=== PATIENT | female | born 1985 | race Caucasian/White ===

== ENCOUNTER 2017-02-19 19:19 | Observation (INO) ==
[2017-02-19] MEDS ORDERED: ACETAMINOPHEN 325 MG TABLET PO PRN (20:54)
[2017-02-19] MEDS ORDERED: NALOXONE 0.4 MG/ML VIAL IV PRN (20:54)
[2017-02-19] MEDS ORDERED: PROMETHAZINE 25 MG/1 ML VIAL IM PRN (20:54)
[2017-02-19] MEDS ORDERED: ONDANSETRON 4 MG/2 ML VIAL IV PRN (20:54)
[2017-02-19 21:30] LABS: Basophils % 0.2 % (0.0-0.8); Eosinophils # 0.1 10*3/uL (0.0-0.87); Eosinophils % 1.1 % (0.00-10.9); Hematocrit 40.3 VOL% (35.7-47.0); Hemoglobin 13.5 GM/DL (12.0-16.0); Immature Granulocytes % 0.4 %; Immature Granulocytes Absolute 0.04 #; Lymphocytes # 1.9 10*3/uL (1.4-4.0); Lymphocytes % 17.5 % (21.3-54.2); Mean Corpuscular HGB Conc 33.5 GM/DL (32-36); Mean Corpuscular Hemoglobin 30 PG (27-34); Mean Corpuscular Volume 90.4 FL (87-102); Mean Platelet Volume 10.8 FL (9.6-12.0); Monocytes # 0.8 10*3/uL (0.11-0.8); Monocytes % 7.6 % (1.7-12.7); Neutrophils # 7.9 10*3/uL (1.4-7.4); Neutrophils % 73.2 % (38.7-73.9); Platelet Count 200 T/CUMM (130-400); Red Blood Count 4.46 MC/CUMM (3.8-5.5); Red Cell Distribution Width 12.4 % (9.3-17.3); White Blood Count 10.8 T/CUMM (4-12)
[2017-02-19 21:53] LABS: Calcium 8.6 MG/DL (8.5-10.1); Osmolality,Calculated 275.5 MOS/KG (273-304); Potassium 3.5 MMOL/L (3.5-5.1)
[2017-02-19] MEDS: DEXTROSE 5% NACL 0.45% 1,000 ML IV SCH (22:11)
[2017-02-19] MEDS: HYDROmorphone PCA 30 MG/30 ML SYRINGE IV SCH (23:53)
--- NOTE | 2017-02-20 07:26 | Urology History & Physical ---
Assessment and Plan - Time spent with patient Time spent with patient: Greater than 30 minutes (1) Intractable nausea and vomiting Status: Acute Assessment and plan: IV fluids for nausea control. Current Visit: Yes (2) Calculus of kidney Status: Acute Assessment and plan: We will try to control her nausea so we can get some laxatives in order to clear out to get a better x-ray so we can see the stone. Current Visit: No - Constitutional Constitutional: Present: as per HPI - EENT Eyes: Present: as per HPI Ears: Present: as per HPI Nose, mouth and throat: Present: as per HPI - Cardiovascular Cardiovascular: Present: as per HPI - Respiratory Respiratory: Present: as per HPI - Gastrointestinal Gastrointestinal: Present: abdominal pain, bloating, change in bowel habits, constipation - Genitourinary Genitourinary: Present: flank pain (Left). Absent: abnormal vaginal bleeding, menorrhagia History of Present Illness Chief complaint: Left flank pain History of present illness: Ms. Poole is a 31 year old female who I saw in the office the day before admission. She has a left rather large 7 have 8 mm ureteral stone. She was seen in the emergency room. She was having significant nausea and vomiting. We tried to treat this as an outpatient. Her father call me the evening of admission said she is having nausea and vomiting she is weak and is not able to keep many fluids down. We therefore admit her for pain control and hydration. When I saw her in the office she had a KUB and I could not really see the stone. She needed to take laxatives and she was having trouble keeping those down. Home Medications Medication Instructions Recorded Confirmed Type Ciprofloxacin Tab [Cipro Tab] 500 mg PO BID #14 tablet 02/14/17 02/19/17 Rx HYDROmorphone TAB [Dilaudid Tab] 4 mg PO Q6H #30 tablet 02/14/17 02/19/17 Rx Tamsulosin [Flomax] 0.4 mg PO DAILY #30 capsule 02/14/17 02/19/17 Rx metroNIDAZOLE TAB [Flagyl Cap/Tab] 500 mg PO BID #14 tablet 02/14/17 02/19/17 Rx Allergies Allergy/AdvReac Type Severity Reaction Status Date / Time No Known Allergies Allergy Verified 02/27/16 07:39 Medical,Surgical,& Family Hx - Medical History Renal: No history of: Renal (Kidney) Cancer, Dialysis, Renal Failure, Renal Problems Genitourinary: History of: Kidney Stones No history of: Bladder Problem, Recurring Urinary Tract Infections, Genitourinary Cancer, Problems Musculoskeletal: No history of: Amputation Reproductive: No history of: Ectopic , Complication - Surgical History Thoracic Surgeries: Patient denies;: Kidney (Renal Surgery), Lithotripsy, Nephrectomy, Organ Transplant, Lobectomy Neurologic Surgeries: Patient denies: Neurologic Surgery Reproductive Surgeries: Surgical HX of;: Section (2014), Gynecologic Surgery Patient denies;: Breast Surgery, Cystoscopy, Genitourinary Surgery, Hysterectomy, Tubal Ligation - Family History Family History: Reports;: Family Cancer (PATERNAL GRANDMOTHER) Denies;: Family Anesthesia Reaction, Family Diabetes, Family Heart Disease, Family Hypertension, Family Psychiatric Problems, Family Stroke - Social History Smoking Status: Never smoker Frequency of Alcohol Use: None Type of Drug Use: None Exam - Constitutional Vitals: Period Temp Pulse Resp BP Sys/Cisneros Pulse Ox Last 24 Hr 97.9 F-98.8 F 74-89 18-20 111-133/68-82 98-100 General appearance: over weight - Head Head exam: Present: normal inspection - ENT ENT exam: Present: normal exam - Neck Neck exam: Present: normal inspection - Respiratory Respiratory exam: Present: clear to auscultation bilaterally - Cardiovascular Cardiovascular exam: Present: regular rate and rhythm - GI/Abdominal GI/Abdominal exam: Present: hypoactive bowel sounds, tenderness (Left lower quadrant), soft. Absent: ascites, distended, firm, guarding, hyperactive bowel sounds, hernia, mass, rebound Results - Labs CBC & BMP: 02/19/17 21:05 02/19/17 21:05
[2017-02-20] MEDS ORDERED: BISACODYL 10 MG SUPP RECTAL SCH (07:30)
[2017-02-20] MEDS: DEXTROSE 5% NACL 0.45% 1,000 ML IV SCH ×2 (08:14→16:13)
[2017-02-20] MEDS: CIPROFLOXACIN 500 MG TABLET PO SCH ×2 (09:30→21:15)
[2017-02-20] MEDS: TAMSULOSIN 0.4 MG CAPSULE PO SCH (09:30)
[2017-02-20] MEDS: metroNIDAZOLE 500 MG TABLET PO SCH ×2 (09:30→21:19)
[2017-02-20] MEDS: LACTULOSE 20 GM/30 ML UDCUP PO SCH ×3 (09:30→21:15)
[2017-02-20] MEDS: HYDROmorphone PCA 30 MG/30 ML SYRINGE IV SCH (21:19)
[2017-02-21] MEDS: DEXTROSE 5% NACL 0.45% 1,000 ML IV SCH ×4 (01:31→13:04)
[2017-02-21] MEDS: LACTULOSE 20 GM/30 ML UDCUP PO SCH ×4 (02:21→13:04)
--- NOTE | 2017-02-21 06:50 | XRay Report ---
XR KUB Indication: Abdominal pain. Comparison: None. Technique: Supine AP image of the abdomen was obtained. Findings: Lung bases are clear. There is no evidence of organomegaly. Bowel gas pattern is unremarkable. Renal contours are bilaterally symmetric. Bones and soft tissues demonstrate no significant abnormalities. IUD is present within the pelvis, stable. Calcification is now present within the right pelvis adjacent to sacral margin. This is compatible with antegrade motion of previously demonstrated urolith. Impression: 1. Antegrade motion of urolithiasis demonstrated. Study is otherwise stable. 02/21/2017 6:46 AM PROCEDURE INTERPRETED AT [facility] DEPARTMENT OF RADIOLOGY Final Report Signed by: Dr. Ford Charlton
[2017-02-21 08:12] LABS: Calcium 8.2 MG/DL (8.5-10.1); Osmolality,Calculated 283.1 MOS/KG (273-304); Potassium 4.2 MMOL/L (3.5-5.1)
[2017-02-21] MEDS: metroNIDAZOLE 500 MG TABLET PO SCH (08:21)
[2017-02-21] MEDS: CIPROFLOXACIN 500 MG TABLET PO SCH (08:21)
[2017-02-21] MEDS: TAMSULOSIN 0.4 MG CAPSULE PO SCH (08:21)
--- NOTE | 2017-02-21 12:32 | Discharge Summary ---
Hospital Course - Hospital Course Hospital Course: 31-year-old white female who had right ureteral stone and intractable nausea with pain. She was admitted to hospital for IV fluids and pain control. She failed outpatient protocol. She is feeling much better now. KUB shows a stone in the distal upper ureter. We will discharge her. We have her scheduled for lithotripsy on 02/24/17. She has prescriptions for medications on no prescriptions are written. Diagnosis - Discharge Diagnosis (1) Intractable nausea and vomiting Status: Resolved (2) Calculus of kidney Status: Chronic Specialty Discharge - Follow Up or Referrals Discharge Plan - Discharge Data Condition at Discharge: Stable Discharge Diet: regular diet Activity: resume usual activities as tolerated Hygiene: no restrictions Weight Bearing at Discharge: full weight bearing Driving: no restrictions Contact your physician if you experience:: fever over 101, Nausea/Vomiting, pain uncontrolled by pain medications - Discharge Medications New Acetaminophen Tab [Tylenol Tab] 650 mg PO Q4H PRN #0 tablet PRN Reason: Temp > 101 or Headache Continue Ciprofloxacin Tab [Cipro Tab] 500 mg PO BID #14 tablet Tamsulosin [Flomax] 0.4 mg PO DAILY #30 capsule metroNIDAZOLE TAB [Flagyl Cap/Tab] 500 mg PO BID #14 tablet HYDROmorphone TAB [Dilaudid Tab] 4 mg PO Q6H PRN PRN Reason: Pain - Follow Up or Referral - Forms/Instructions Instructions: Kidney Stones (DC), Acute Nausea and Vomiting (DC) Exam - Constitutional Vitals: Period Temp Pulse Resp BP Sys/Cisneros Pulse Ox Last 24 Hr 98 F-98.4 F 70-88 16-20 103-125/57-73 95-100 Discharge Results Labs on day of discharge: Labs from last 24 hours 02/21/17 06:38 Sodium 142 Potassium 4.2 Chloride 107 Carbon Dioxide 27 Anion Gap 12.2 BUN 12 Creatinine 0.80 GFR Calculation 98 BUN/Creatinine Ratio 15.00 Glucose 113 H Calculated Osmolality 283.1 Calcium 8.2 L DS: Provider Date of admission: 02/19/17 19:30 Primary care physician: . No PCP Attending physician on admission: Pepe Graves MD Discharging clinician: Pepe Graves MD
[2017-02-21 14:05] VITALS: BP 112/64
== END 2017-02-21 15:03 | disposition home or self-care (01) ==
LOC: N.5E
PROVIDERS: ADMIT Urology; ATTEND Urology